=== PATIENT | female | born 1990 | race Caucasian/White ===

== ENCOUNTER 2023-09-02 07:31 | Day surgery (SDC) | payer BC ==
[~2023-09-02] VITALS: Ht 167.6 cm; Wt 91.7 kg
[~2023-09-02 07:31] MED LIST: ESCI10 PO
[2023-09-02 09:28] VITALS: BP 112/72
== END 2023-09-02 09:34 | disposition home or self-care (01) ==
LOC: ORSCSDS 07:31
PROVIDERS: Internal Medicine Gastroenterology
PROC: 0DJD8ZZ Inspection of Lower Intestinal Tract, Via Natural or Artificial Opening Endoscopic (ICD-10-PCS; principal; 2023-09-02 08:45)
DX: Z12.11 Encounter for screening for malignant neoplasm of colon (principal); Z80.0 Family history of malignant neoplasm of digestive organs; Z83.719 Family history of colon polyps, unspecified; Z87.891 Personal history of nicotine dependence
CPT/HCPCS: J2704; J7120